=== PATIENT | male | born 1945 | race Caucasian/White ===

== ENCOUNTER 2019-05-12 16:05 | Inpatient (IN) ==
[2019-05-12 16:28] LABS: Eosinophils # (auto) 0.01 K/uL (0-0.5); Eosinophils % (auto) 0.1 %; Hematocrit (blood only) 40.5 % (42-52); Hemoglobin 14.2 g/dL (14.0-18.0); Immature Granulocytes # (auto) 0.02 K/uL (0.00-0.02); Immature Granulocytes % (auto) 0.2 %; Lymphocytes # (auto) 0.65 K/uL (1.2-3.4); Lymphocytes % (auto) 7.5 %; Mean Corpuscular Hgb Conc 35.1 g/dL (32-36); Mean Corpuscular Volume 94.2 fL (80-100); Monocytes # (auto) 1.05 K/uL (0.11-0.59); Monocytes % (auto) 12.1 %; Neutrophils # (auto) 6.95 K/uL (1.4-6.5); Neutrophils % (auto) 80.1 %; Platelet Count 149 K/uL (130-400); RDW Coefficient of Variation 13.2 % (11.5-14.5); RDW Standard Deviation 45.8 fL (36.4-46.3); White Blood Count 8.68 K/uL (4.8-10.8)
[2019-05-12] MEDS ORDERED: SODIUM CHLORIDE 0.9% 1000ML 1,000 ML IV SCH (16:30)
[2019-05-12 16:41] LABS: Alanine Aminotransferase 26 U/L (12-78); Albumin Level 3.6 gm/dl (3.4-5.0); Aspartate Aminotransferase 28 U/L (15-37); BUN Creatinine Ratio 21.2 (10-20); Blood Urea Nitrogen 21 mg/dl (7-18); Calcium 9.5 mg/dl (8.5-10.1); Carbon Dioxide 25 mmol/L (21-32); Chloride 104 mmol/L (98-107); Creatinine Clr Calc Pharmacy 61.1 ml/min; Est GFR (Non-African American) 74.2; Glucose 143 mg/dl (70-99); Potassium 4.2 mmol/L (3.5-5.1); Sodium 139 mmol/L (136-145)
[2019-05-12 16:42] LABS: INR 1.1 (0.9-1.1); Partial Thromboplastin Time 26.2 Seconds (21.0-31.0); Prothrombin Time 10.9 Seconds (9.0-12.0)
[2019-05-12] MEDS ORDERED: PIPERACILL/TAZOBAC CONSULT ACTIVE PRN (16:43)
[2019-05-12] MEDS ORDERED: VANCOMYCIN CONSULT ACTIVE PRN (16:43)
[2019-05-12] MEDS ORDERED: VANCOMYCIN HCL 1,750 MG in SODIUM CHLORIDE 0.9% 500 ML IV ONE (16:43)
[2019-05-12] MEDS ORDERED: PIPERACILLIN/TAZOBACTAM 4.5 GM/120 ML BAG IV ONE (16:43)
[2019-05-12 16:46] LABS: Albumin Globulin Ratio 0.8 (0.9-2); Alkaline Phosphatase 149 U/L (45-117); Bilirubin,Total 0.8 mg/dl (0.2-1); Globulin 4.6 gm/dl (2.5-4.0); Total Protein 8.2 gm/dl (6.4-8.2); Troponin I < 0.015 ng/ml (0-0.045)
--- NOTE | 2019-05-12 16:47 | CT Scan Report ---
CT SCAN OF THE BRAIN WITHOUT IV CONTRAST CLINICAL HISTORY: Headache. COMPARISON STUDY: CT of the brain dated 12/20/2018. TECHNIQUE: Unenhanced axial CT scan of the brain is performed from the vertex to the skull base. A do se lowering technique was utilized adhering to the principles of ALARA. CT DOSE: 614.27 mGy.cm FINDINGS: Brain parenchyma: There is a large focus of encephalomalacia centered in the left basal ganglia at th e site of previous hemorrhage. There is serpiginous hyperdensity at this site (axial image #16) which likely represents gliosis/calcification. Trace recurrent hemorrhage would be impossible to exclude i n the absence of prior comparisons. There are age-related involutional changes noting moderate subco rtical and periventricular microangiopathic change. There is no mass effect or or evidence of acute t erritorial ischemia by CT criteria. Nails-white matter differentiation is preserved. No extra-axial fl uid collection is seen. Ventricles, sulci, cisterns: Prominent secondary to involutional change. Intracranial vasculature: There is atherosclerotic calcification of the cavernous carotid and vertebr al arteries. Calvarium: Unremarkable. Sinuses and mastoids: Trace mucosal thickening is seen in the maxillary antra. The remaining paranasa l sinuses are clear. The mastoid air cells are well pneumatized. Orbits: The bony orbits are grossly intact. IMPRESSION: 1. There is a large focus of encephalomalacia centered in the left basal ganglia at the site of previ ous hemorrhage. There is serpiginous hyperdensity at this site which likely represents calcification/ gliosis. Recurrent hemorrhage is considered less likely but would be impossible to exclude without in terval comparison studies. If there is strong clinical concern for acute hemorrhage consider short-te rm CT follow-up. 2. No additional foci are concerning for hemorrhage. 3. There is no mass effect or evidence of acute territorial ischemia by CT criteria. Electronically signed by: Elvin Alcantar M.D. 05/12/2019 4:46 PM
[2019-05-12] MEDS: SODIUM CHLORIDE 0.9% 1000ML 1,000 ML IV SCH ×3 (16:54→22:50)
--- NOTE | 2019-05-12 17:19 | XRay Report ---
SINGLE VIEW CHEST CLINICAL HISTORY: Sepsis. FINDINGS: An AP, portable, upright chest radiograph is obtained. No prior studies are available for c omparison at the time of dictation. The examination is degraded by portable technique and patient ro tation. The heart is enlarged and there is atherosclerotic calcification of the thoracic aorta. The p ulmonary vasculature is noncongested. There is mild bibasilar scarring/atelectasis. No airspace conso lidation or large pleural effusion is identified. No pneumothorax is seen. The skeletal structures ar e osteopenic. The bony thorax is grossly intact. Degenerative change is noted in the shoulders and th oracic spine. IMPRESSION: Cardiomegaly with no acute cardiopulmonary abnormality. Electronically signed by: Elvin Alcantar M.D. 05/12/2019 5:18 PM
[2019-05-12] MEDS ORDERED: ACETAMINOPHEN 1,000 MG/100 ML VIAL IV STA (17:32)
--- NOTE | 2019-05-12 18:56 | History & Physical Report ---
Date of Service May 12, 2019 Assessment & Plan (1) Fever: In ER pt found to be febrile 38.6-39.2C, P: 125, R: 13, BP: 170/112, 99% on RA. WBC: 8, H/H: 14/40, lactate: 2.9, Procalcitonin: 0.10 CXR: no acute changes CT Head: 1. There is a large focus of encephalomalacia centered in the left basal ganglia at the site of previous hemorrhage. There is serpiginous hyperdensity at this site which likely represents calcification/gliosis. Recurrent hemorrhage is considered less likely but would be impossible to exclude without interval comparison studies. If there is strong clinical concern for acute hemorrhage consider short-term CT follow-up. 2. No additional foci are concerning for hemorrhage. 3. There is no mass effect or evidence of acute territorial ischemia by CT criteria. -In ER Was given 2L NSS, Zosyn, Vancomycin, Tylenol IV and pt reports decreased NOONAN. HR decreased to 102, BP decreased to 128/74 -Meets SIRS criteria, possible meningitis. 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 Course complicated by DT's, respiratory failure requiring intubation, PEG tube Residual expressive and receptive aphasia Today CT Head: 1. There is a large focus of encephalomalacia centered in the left basal ganglia at the site of previous hemorrhage. There is serpiginous hyperdensity at this site which likely represents calcification/gliosis. Recurrent hemorrhage is considered less likely but would be impossible to exclude without interval comparison studies. If there is strong clinical concern for acute hemorrhage consider short-term CT follow-up. 2. No additional foci are concerning for hemorrhage. 3. There is no mass effect or evidence of acute territorial ischemia by CT criteria. -Will get MRI brain (3) HTN (hypertension): Initially hypertensive in ER at 170/112 down to 128/74 Pt has been off lisinopril secondary to low BPs over past couple of months -Monitor BP DVT Prophylaxis -SCDs Full Code as per discussion with pt Follows with Dr Dickens for routine care Pt was seen and care coordinated with Dr Bronson. 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 assists in history secondary to patients aphasia. States pt with diffuse weakness today and decreased appetite. Pt c/o diffuse NOONAN today. Reports pt with residual weakness, however was back to being able to walk and was to start outpatient therapy today. Today pt too weak to walk. Pt with chronic neck pain and stiffness since hemorrhagic stroke in 11/2018. Denies any increased neck pain or stiffness. Pt had Tdap on 05/08/19. Today noticed redness at injection site. Pt had PEG tube during hospitalization in 11/2018 which has been removed and since with noted bleeding and discharge. Denies any increased discharge from site. Denies surrounding erythema or edema. Denies abdominal pain, N/V/D. Denies known tick bites, ill contacts. Was taken off Lisinopril approx. 2 months ago secondary to low BPs at PCP office. Denies diaphoresis, dizziness, syncope, photophobia, vision changes, CP, SOB, orthopnea, palpitations, cough, sore throat, choking, otalgia, rhinorrhea, paresthesias, extremity edema, other rashes, urinary symptoms. In ER pt found to be febrile up to 39.2C. 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 Course complicated by DT's, respiratory failure requiring intubation, PEG tube Residual expressive and receptive aphasia Alcohol abuse (Chronic) Last drink 11/2018 Surgical History Status post insertion of percutaneous endoscopic gastrostomy (PEG) tube (Resolved) Placed at [facility] during hospitalization 11/2018; Now removed Family History Other Family history non-contributory Social History Preferred Language: Tristanian Communication Ability: Effective Global Program Director Required: No Beliefs That Will Affect Care: None marital status: Current Living Situation: Spouse Feels Safe at Home: Yes Smoking Status: Never smoker Hx Alcohol Use: No (HX ALCOHOL DAILY USE OVER YEARS - QUIT NOVEMBER 2018) Hx Substance Use: No Review of Systems Review of Systems: All systems reviewed & are unremarkable except as noted in HPI & below Physical Exam Physical Exam: General: no acute distress, WDWN Head: normocephalic, atraumatic Eyes: PERRL, EOM's intact, conjunctiva non-injected, anicteric ENT: normal inspection external ears, nose, mucous membranes dry, very poor dentition with caries and broken teeth with gingival edema, slight gingival bleeding upper front gingiva; no facial edema Neck: supple, trachea midline, chronic neck stiffness Lungs: clear, no respiratory distress, no wheezing/rhonchi/rales CV: Tachy 102, regular rhythm, no murmur, no JVD, no pretibial edema Abd: normal BS, soft, +open area at prior peg tube site with slight bloody drainage noted on dressing without any surrounding edema or erythema, no purulent drainage noted, non-tender Ext: no cyanosis, no calf tenderness Neuro: Alert, +aphasia which is chronic, diffuse weakness is also chronic Skin: warm, dry, LUE: 9cm x 5cm area of erythema at site of Tdap Results & Data Vital Signs (Past 12 Hours) Vital Signs Temp Pulse Pulse Resp BP BP Pulse Ox 05/12/19 18:30 102 H 95 05/12/19 18:15 111 H 94 05/12/19 18:00 128/74 96 05/12/19 17:47 150/89 H 99 05/12/19 17:32 129 H 189/109 H 96 05/12/19 17:30 39.2 C H 121 H 122 H 18 201/125 H 189/109 H 97 05/12/19 17:15 111 H 177/115 H 97 05/12/19 17:00 114 H 112 H 18 174/101 H 177/115 H 97 05/12/19 16:45 119 H 18 97 05/12/19 16:35 127 H 22 165/102 H 97 05/12/19 16:30 119 H 23 165/102 H 98 05/12/19 16:28 119 H 24 169/96 H 98 05/12/19 16:20 120 H 18 170/104 H 99 05/12/19 16:15 121 H 25 H 97 05/12/19 16:14 123 H 25 H 98 05/12/19 16:11 123 H 27 H 170/112 H 98 05/12/19 16:05 38.6 C H 125 H 125 H 13 170/112 H 170/112 H 99 Laboratory Results Short CBC 05/12/19 Range/Units 15:49 WBC 8.68 (4.8-10.8) K/uL Hgb 14.2 (14.0-18.0) g/dL Hct 40.5 L (42-52) % Plt Count 149 (130-400) K/uL BMP 05/12/19 15:49 Sodium 139 Potassium 4.2 Chloride 104 Carbon Dioxide 25 BUN 21 H Creatinine 0.99 Glucose 143 H Calcium 9.5 Cardiac Enzymes 05/12/19 Range/Units 15:49 Troponin I < 0.015 (0-0.045) ng/ml Liver Function 05/12/19 Range/Units 15:49 Total Bilirubin 0.8 (0.2-1) mg/dl AST 28 (15-37) U/L ALT 26 (12-78) U/L Alkaline Phosphatase 149 H (45-117) U/L Albumin 3.6 (3.4-5.0) gm/dl LACTATE 2.9 (0.4-2.0) Diagnostic Findings CT HEAD: IMPRESSION: 1. There is a large focus of encephalomalacia centered in the left basal ganglia at the site of previous hemorrhage. There is serpiginous hyperdensity at this site which likely represents calcification/gliosis. Recurrent hemorrhage is considered less likely but would be impossible to exclude without interval comparison studies. If there is strong clinical concern for acute hemorrhage consider short-term CT follow-up. 2. No additional foci are concerning for hemorrhage. 3. There is no mass effect or evidence of acute territorial ischemia by CT criteria. CXR: IMPRESSION: Cardiomegaly with no acute cardiopulmonary abnormality. ECG Rate (beats per minute): 119 Rhythm: sinus tachycardia Findings: + PVC Code Status & VTE Plan VTE Prophylaxis Plan VTE Prophylaxis will be ordered: Yes Supervising Physician Co-Signing Physician Notes Pt was seen and examined. Agreed with Stacie DOUGLAS exam, assessment and plan. 73 y/o M with PMH intraparenchymal hemorrhage 11/2018 with residual expressive and receptive aphasia, alcoholism with last drink in 11/2018, HTN presented to ER with weakness. Most of the history obtained from due to patients aphasia. Pt developed generalized weakness and low appetite. He said that he feels his legs gave up on him. Febrile associated with headache in the ER. CT head done showed large focus of encephalomalacia centered in the left basal ganglia at the site of previous hemorrhage. Will check blood cx and wound cx at the peg tube site. Discussed with patient about meningitis and possible of LP, pt said that he wants a little time to think about LP. Will check Lyme and anaplasmosis markers. Continue Rocephin and IV Vancomycin. Continue monitor closely. MD Aiyana
[2019-05-12 19:47] LABS: Appearance Urine Clear (Clear); Bilirubin Urine Negative (Negative); Blood Urine Negative (Negative); Color Urine Dark Yellow; Glucose Urine UA Negative (Negative); Ketones Urine Negative (Negative); Leukocyte Esterase Urine Negative (Negative); Nitrite Urine Negative (Negative); Protein Urine Negative (Negative); Specific Gravity Urine 1.021 (1.000-1.030); Urobilinogen Urine Negative (Negative); pH Urine 7.5 (4.5-7.5)
--- NOTE | 2019-05-12 22:01 | CT Scan Report ---
CT SCAN OF THE BRAIN WITHOUT IV CONTRAST CLINICAL HISTORY: Strokelike symptoms. Headache. COMPARISON STUDY: CT scans of the brain performed earlier the same day 05/12/2019 and 12/20/2018. TECHNIQUE: Unenhanced axial CT scan of the brain is performed from the vertex to the skull base. A do se lowering technique was utilized adhering to the principles of ALARA. CT DOSE: 614.27 mGy.cm FINDINGS: Brain parenchyma: There is a large focus of encephalomalacia centered in the left basal ganglia at th e site of previous hemorrhage. There is serpiginous hyperdensity at this site (axial image #16) which likely represents gliosis/calcification. Trace recurrent hemorrhage would be impossible to exclude i n the absence of prior comparisons. There are age-related involutional changes noting moderate subco rtical and periventricular microangiopathic change. There is no mass effect or or evidence of acute t erritorial ischemia by CT criteria. Nails-white matter differentiation is preserved. No extra-axial fl uid collection is seen. Ventricles, sulci, cisterns: Prominent secondary to involutional change. Intracranial vasculature: There is atherosclerotic calcification of the cavernous carotid and vertebr al arteries. Calvarium: Unremarkable. Sinuses and mastoids: Trace mucosal thickening is seen in the maxillary antra. The remaining paranasa l sinuses are clear. The mastoid air cells are well pneumatized. Orbits: The bony orbits are grossly intact. IMPRESSION: 1. There has been no significant change from today's earlier examination. 2. Again seen is a large focus of encephalomalacia centered in the left basal ganglia at the site of previous hemorrhage. Serpiginous hyperdensity is again seen at this site, and this likely represents calcification/gliosis. Recurrent hemorrhage is not excluded. If there is strong clinical concern for recurrent hemorrhage a 12-24 follow-up examination is recommended or sooner if the patient clinically worsens. 3. No additional findings are concerning for hemorrhage. 4. There is no mass effect or evidence of acute territorial ischemia by CT criteria. Electronically signed by: Elvin Alcantar M.D. 05/12/2019 10:00 PM
[2019-05-12] MEDS ORDERED: ACETAMINOPHEN 325 MG TAB PO PRN (22:22)
[2019-05-12] MEDS ORDERED: ONDANSETRON INJ 2 MG/ML 2 ML VIAL IV PRN (22:22)
[2019-05-12 23:12] LABS: Lyme Ab IgG w/WB Rflx Negative (Negative); Lyme Ab IgM w/WB Rflx Negative (Negative)
[2019-05-13] MEDS: cefTRIAXone SODIUM 2,000 MG in DEXTROSE 5% 50 ML IV SCH ×3 (00:04→21:31)
--- NOTE | 2019-05-13 00:25 | Emergency Department Note ---
Entered by Nichelle Ledesma acting as a scribe for Sonido Frances MD History of Present Illness General Chief complaint: Stroke/CVA Symptoms Stated complaint: AMS, FEVER, Source: family () and EMS Mode of arrival: EMS History of Present Illness Provider complaint: headache Onset (ago): hour(s) 1 Location: head Radiation: non-radiation Severity: similar to prior episodes Associated symptoms: + confusion, + fever/chills (+fever, -chills), + loss of appetite, + weakness and + other (+pale); no seizure The patient is a 73 male w/ PMHx of hemorrhagic stroke, alcohol abuse, and aphasia who presents to the ED w/ CC of a headache beginning an hour ago. Per EMS, the patient was walking with his prior to arrival where he developed a headache and became weak. They report that she sat him down on the floor. They state that the patient has a history of hemorrhagic stroke that occurred in November. They state that the patient was pale, febrile, and confused on arrival. Per the patients , the patient has aphasia from the prior stoke. She notes that the patient has had a lack of appetite lately and has not been able to get him to walk. She states that the patient has a history of alcoholism which he quit in November after his stroke. She states that the patient does not take any medications. She states that the patient did not have a sei zure prior to arrival and has no history of seizures. 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 Course complicated by DT's, respiratory failure requiring intubation, PEG tube Residual expressive and receptive aphasia Alcohol abuse (Chronic) Last drink 11/2018 Surgical History Status post insertion of percutaneous endoscopic gastrostomy (PEG) tube (Resolved) Placed at [facility] during hospitalization 11/2018; Now removed Family History Other Family history non-contributory Social History Preferred Language: Italian Communication Ability: Effective Current Living Situation: Spouse Feels Safe at Home: Yes Safety Concerns: Feels Safe At This Time Smoking Status: Never smoker Hx Alcohol Use: Yes Hx Substance Use: No Review of Systems See HPI for pertinent positives & negatives. and A total of 10 systems reviewed and were otherwise negative Physical Exam Vital Signs Vital Signs - 24 hr 05/12/19 16:05 05/12/19 16:11 05/12/19 16:14 Temperature 38.6 C H Temperature Source Oral Sepsis Recent Fever Within 48 Hours Yes Sepsis New/Unexplained Change in Mental Status No Sepsis Action Taken by Nursing No Action Required Pulse Rate 125 H 123 H 123 H Pulse Rate [Apical] 125 H Pulse Rate from SpO2 Sensor 123 H 123 H Pulse Rhythm Regular Pulse Strength Normal Respiratory Rate 13 27 H 25 H Respiratory Effort / Characteristics Non-Labored Spontaneous Respiratory Depth Normal Respiratory Pattern Regular Blood Pressure 170/112 H 170/112 H Blood Pressure [Left Arm] 170/112 H Blood Pressure Mean 131 131 Blood Pressure Mean [Left Arm] 131 Blood Pressure Position Lying Blood Pressure Position [Left Arm] Lying Pulse Oximetry 99 98 98 Oxygen Delivery Method Room Air 05/12/19 16:15 05/12/19 16:20 05/12/19 16:28 Temperature Temperature Source Sepsis Recent Fever Within 48 Hours Sepsis New/Unexplained Change in Mental Status Sepsis Action Taken by Nursing Pulse Rate 121 H 119 H Pulse Rate [Apical] 120 H Pulse Rate from SpO2 Sensor 121 H 120 H Pulse Rhythm Pulse Strength Respiratory Rate 25 H 18 24 Respiratory Effort / Characteristics Non-Labored Spontaneous Respiratory Depth Normal Respiratory Pattern Regular Blood Pressure 169/96 H Blood Pressure [Left Arm] 170/104 H Blood Pressure Mean 120 Blood Pressure Mean [Left Arm] 126 Blood Pressure Position Blood Pressure Position [Left Arm] Lying Pulse Oximetry 97 99 98 Oxygen Delivery Method Room Air 05/12/19 16:30 05/12/19 16:35 05/12/19 16:45 Temperature Temperature Source Sepsis Recent Fever Within 48 Hours Sepsis New/Unexplained Change in Mental Status Sepsis Action Taken by Nursing Pulse Rate 119 H 119 H Pulse Rate [Apical] 127 H Pulse Rate from SpO2 Sensor 120 H 118 H Pulse Rhythm Pulse Strength Respiratory Rate 23 22 18 Respiratory Effort / Characteristics Non-Labored Spontaneous Respiratory Depth Normal Respiratory Pattern Regular Blood Pressure 165/102 H Blood Pressure [Left Arm] 165/102 H Blood Pressure Mean 123 Blood Pressure Mean [Left Arm] 123 Blood Pressure Position Blood Pressure Position [Left Arm] Lying Pulse Oximetry 98 97 97 Oxygen Delivery Method Room Air 05/12/19 17:00 05/12/19 17:15 05/12/19 17:30 Temperature 39.2 C H Temperature Source Oral Sepsis Recent Fever Within 48 Hours Sepsis New/Unexplained Change in Mental Status Sepsis Action Taken by Nursing Pulse Rate 114 H 111 H 121 H Pulse Rate [Apical] 112 H 122 H Pulse Rate from SpO2 Sensor 114 H 108 H 123 H Pulse Rhythm Pulse Strength Respiratory Rate 18 18 Respiratory Effort / Characteristics Non-Labored Spontaneous Non-Labored Spontaneous Respiratory Depth Normal Normal Respiratory Pattern Regular Regular Blood Pressure 174/101 H 177/115 H 201/125 H Blood Pressure [Left Arm] 177/115 H 189/109 H Blood Pressure Mean 125 135 150 Blood Pressure Mean [Left Arm] 135 135 Blood Pressure Position Blood Pressure Position [Left Arm] Lying Lying Pulse Oximetry 97 97 97 Oxygen Delivery Method Room Air Room Air 05/12/19 17:32 05/12/19 17:47 05/12/19 18:00 Temperature Temperature Source Sepsis Recent Fever Within 48 Hours Sepsis New/Unexplained Change in Mental Status Sepsis Action Taken by Nursing Pulse Rate 129 H Pulse Rate [Apical] Pulse Rate from SpO2 Sensor 118 H 113 H 111 H Pulse Rhythm Pulse Strength Respiratory Rate Respiratory Effort / Characteristics Respiratory Depth Respiratory Pattern Blood Pressure 189/109 H 150/89 H 128/74 Blood Pressure [Left Arm] Blood Pressure Mean 135 109 92 Blood Pressure Mean [Left Arm] Blood Pressure Position Blood Pressure Position [Left Arm] Pulse Oximetry 96 99 96 Oxygen Delivery Method Room Air 05/12/19 18:15 05/12/19 18:30 05/12/19 18:45 Temperature Temperature Source Sepsis Recent Fever Within 48 Hours Sepsis New/Unexplained Change in Mental Status Sepsis Action Taken by Nursing Pulse Rate 111 H 102 H 95 H Pulse Rate [Apical] Pulse Rate from SpO2 Sensor 106 H 102 H 90 Pulse Rhythm Pulse Strength Respiratory Rate Respiratory Effort / Characteristics Respiratory Depth Respiratory Pattern Blood Pressure Blood Pressure [Left Arm] Blood Pressure Mean Blood Pressure Mean [Left Arm] Blood Pressure Position Blood Pressure Position [Left Arm] Pulse Oximetry 94 95 96 Oxygen Delivery Method Room Air Room Air Room Air GENERAL: Well appearing, tachycardic, well nourished, NAD, non-toxic. EYE EXAM: Normal conjunctiva. PERRL, no anisocoria and EOM's grossly intact w/o pain. OROPHARYNX: Moist mucous membranes. Grossly normal dentition. NECK: Supple, no nuchal rigidity, no adenopathy, non-tender. No signs of meningismus. LUNGS: Clear to auscultation. Normal chest wall mechanics. HEART: Tachycardic rate, regular rhythm, no MRG. ABDOMEN: Abdomen soft, non-tender, normo-active bowel sounds, no masses, no rebound or guarding. BACK: No CVA TTP. SKIN: No bruising. Scant redness to L upper extremity, 4 cm by 4 cm, blanches, Nikolsky negative. UPPER EXTREMITIES: Upper extremities are grossly normal. LOWER EXTREMITIES: No pitting edema. No calf pain. NEURO EXAM: Awake, eyes open, following intermittent commands, good finger to nose, no drift of extremities, intermittent confusion, sometimes responds with same answer for different questions. Course 1610: The patient was evaluated in room B1, and a complete history and physical examination were performed. 172: I reevaluated the patient and updated him and his of his results, the patient is resting comfortably. 1729: I discussed the patient's case with Stacie Walsh, Dr. Razia Walsh Hospitalist, will accept the patient for further evaluation. Consultations Consultation #1: Stacie Walsh Hospitalist Time: 17:39 Administered Medications Sodium Chloride (Nss 1000ml) 1,000 mls @ 100 mls/hr IV .Q10H JOHN Stop: 05/13/19 18:21 Last Admin: 05/12/19 22:50 Dose: 100 mls/hr Documented by: [id number] Ceftriaxone Sodium 2,000 mg/ (Dextrose) 70 mls @ 100 mls/hr IV Q12H JOHN; Protocol Stop: 05/22/19 22:59 Last Admin: 05/13/19 00:04 Dose: 100 mls/hr Documented by: [id number] Discontinued Medications Sodium Chloride (Nss 1000ml) 1,000 mls @ 999 mls/hr IV .Q1H1M JOHN Stop: 05/12/19 17:30 Last Infusion: 05/12/19 17:54 Dose: 0 mls/hr Documented by: [id number] Admin: 05/12/19 16:53 Dose: 999 mls/hr Documented by: [id number] Sodium Chloride (Nss 1000ml) 1,000 mls @ 999 mls/hr IV .Q1H1M JOHN Stop: 05/12/19 17:00 Last Infusion: 05/12/19 18:30 Dose: 0 mls/hr Documented by: [id number] Admin: 05/12/19 17:05 Dose: 999 mls/hr Documented by: [id number] Piperacillin Sod/Tazobactam Sod (Zosyn) 4.5 gm in 120 mls @ 240 mls/hr IV NOW ONE Stop: 05/12/19 17:12 Last Infusion: 05/12/19 17:29 Dose: 0 mls/hr Documented by: [id number] Admin: 05/12/19 16:59 Dose: 240 mls/hr Documented by: [id number] Vancomycin HCl 1,750 mg/ (Sodium Chloride) 535 mls @ 200 mls/hr IV NOW ONE; Protocol Stop: 05/12/19 19:23 Last Infusion: 05/12/19 20:12 Dose: 0 mls/hr Documented by: [id number] Admin: 05/12/19 17:29 Dose: 200 mls/hr Documented by: [id number] Acetaminophen (Ofirmev) 1,000 mg in 100 mls @ 400 mls/hr IV NOW STA Stop: 05/12/19 17:46 Last Infusion: 05/12/19 17:53 Dose: 0 mls/hr Documented by: [id number] Admin: 05/12/19 17:38 Dose: 400 mls/hr Documented by: [id number] Medical Decision Making Medical Records Attestation: I reviewed the patient's medical records. Home Medications Current Medication List: was personally reviewed by me Laboratory Data Attestation: I reviewed the patient's lab results. Result diagrams: 05/12/19 15:49 05/12/19 15:49 Lab Results 05/12/19 05/12/19 05/12/19 Range/Units 15:49 15:49 15:49 WBC 8.68 (4.8-10.8) K/uL RBC 4.30 L (4.7-6.1) M/uL Hgb 14.2 (14.0-18.0) g/dL Hct 40.5 L (42-52) % MCV 94.2 (80-100) fL MCH 33.0 (25-34) pg MCHC 35.1 (32-36) g/dL RDW Std Deviation 45.8 (36.4-46.3) fL RDW Coeff of [place] 13.2 (11.5-14.5) % Plt Count 149 (130-400) K/uL MPV 10.0 (7.4-10.4) fL Immature Gran % (Auto) 0.2 % Neut % (Auto) 80.1 % Lymph % (Auto) 7.5 % [place] % (Auto) 12.1 % Eos % (Auto) 0.1 % Baso % (Auto) 0.0 % Immature Gran # (Auto) 0.02 (0.00-0.02) K/uL Neut # (Auto) 6.95 H (1.4-6.5) K/uL Lymph # (Auto) 0.65 L (1.2-3.4) K/uL [place]pton # (Auto) 1.05 H (0.11-0.59) K/uL Eos # (Auto) 0.01 (0-0.5) K/uL Baso # (Auto) 0.00 (0-0.2) K/uL Absolute Nucleated RBC 0.00 (0-0) K/uL Nucleated RBC % (auto) 0.0 % PT 10.9 (9.0-12.0) Seconds INR 1.1 (0.9-1.1) APTT 26.2 (21.0-31.0) Seconds PTT Ratio 1.0 Sodium 139 (136-145) mmol/L Potassium 4.2 (3.5-5.1) mmol/L Chloride 104 (98-107) mmol/L Carbon Dioxide 25 (21-32) mmol/L Anion Gap 10.0 (3-11) BUN 21 H (7-18) mg/dl Creatinine 0.99 (0.6-1.4) mg/dl Est Cr Clr Drug Dosing 61.1 ml/min Est GFR ( Amer) 86.0 Est GFR (Non-Af Amer) 74.2 BUN/Creatinine Ratio 21.2 H (10-20) Glucose 143 H (70-99) mg/dl POC Glucose (70-99) Lactate (0.4-2.0) mmol/L Calcium 9.5 (8.5-10.1) mg/dl Total Bilirubin 0.8 (0.2-1) mg/dl AST 28 (15-37) U/L ALT 26 (12-78) U/L Alkaline Phosphatase 149 H (45-117) U/L Troponin I < 0.015 (0-0.045) ng/ml Total Protein 8.2 (6.4-8.2) gm/dl Albumin 3.6 (3.4-5.0) gm/dl Globulin 4.6 H (2.5-4.0) gm/dl Albumin/Globulin Ratio 0.8 L (0.9-2) Procalcitonin (0-0.5) ng/ml Ethyl Alcohol mg/dL (0-3) mg/dl Anaplasma Smear See Comment Lyme Disease IgG Ab (Negative) Lyme Disease IgM Ab (Negative) 05/12/19 05/12/19 05/12/19 Range/Units 15:49 15:49 16:14 WBC (4.8-10.8) K/uL RBC (4.7-6.1) M/uL Hgb (14.0-18.0) g/dL Hct (42-52) % MCV (80-100) fL MCH (25-34) pg MCHC (32-36) g/dL RDW Std Deviation (36.4-46.3) fL RDW Coeff of [place] (11.5-14.5) % Plt Count (130-400) K/uL MPV (7.4-10.4) fL Immature Gran % (Auto) % Neut % (Auto) % Lymph % (Auto) % [place] % (Auto) % Eos % (Auto) % Baso % (Auto) % Immature Gran # (Auto) (0.00-0.02) K/uL Neut # (Auto) (1.4-6.5) K/uL Lymph # (Auto) (1.2-3.4) K/uL Upton # (Auto) (0.11-0.59) K/uL Eos # (Auto) (0-0.5) K/uL Baso # (Auto) (0-0.2) K/uL Absolute Nucleated RBC (0-0) K/uL Nucleated RBC % (auto) % PT (9.0-12.0) Seconds INR (0.9-1.1) APTT (21.0-31.0) Seconds PTT Ratio Sodium (136-145) mmol/L Potassium (3.5-5.1) mmol/L Chloride (98-107) mmol/L Carbon Dioxide (21-32) mmol/L Anion Gap (3-11) BUN (7-18) mg/dl Creatinine (0.6-1.4) mg/dl Est Cr Clr Drug Dosing ml/min Est GFR ( Amer) Est GFR (Non-Af Amer) BUN/Creatinine Ratio (10-20) Glucose (70-99) mg/dl POC Glucose 143 H (70-99) Lactate (0.4-2.0) mmol/L Calcium (8.5-10.1) mg/dl Total Bilirubin (0.2-1) mg/dl AST (15-37) U/L ALT (12-78) U/L Alkaline Phosphatase (45-117) U/L Troponin I (0-0.045) ng/ml Total Protein (6.4-8.2) gm/dl Albumin (3.4-5.0) gm/dl Globulin (2.5-4.0) gm/dl Albumin/Globulin Ratio (0.9-2) Procalcitonin 0.10 (0-0.5) ng/ml Ethyl Alcohol mg/dL (0-3) mg/dl Anaplasma Smear Lyme Disease IgG Ab Negative (Negative) Lyme Disease IgM Ab Negative (Negative) 05/12/19 05/12/19 Range/Units 16:38 16:38 WBC (4.8-10.8) K/uL RBC (4.7-6.1) M/uL Hgb (14.0-18.0) g/dL Hct (42-52) % MCV (80-100) fL MCH (25-34) pg MCHC (32-36) g/dL RDW Std Deviation (36.4-46.3) fL RDW Coeff of [place] (11.5-14.5) % Plt Count (130-400) K/uL MPV (7.4-10.4) fL Immature Gran % (Auto) % Neut % (Auto) % Lymph % (Auto) % [place] % (Auto) % Eos % (Auto) % Baso % (Auto) % Immature Gran # (Auto) (0.00-0.02) K/uL Neut # (Auto) (1.4-6.5) K/uL Lymph # (Auto) (1.2-3.4) K/uL [place] # (Auto) (0.11-0.59) K/uL Eos # (Auto) (0-0.5) K/uL Baso # (Auto) (0-0.2) K/uL Absolute Nucleated RBC (0-0) K/uL Nucleated RBC % (auto) % PT (9.0-12.0) Seconds INR (0.9-1.1) APTT (21.0-31.0) Seconds PTT Ratio Sodium (136-145) mmol/L Potassium (3.5-5.1) mmol/L Chloride (98-107) mmol/L Carbon Dioxide (21-32) mmol/L Anion Gap (3-11) BUN (7-18) mg/dl Creatinine (0.6-1.4) mg/dl Est Cr Clr Drug Dosing ml/min Est GFR ( Amer) Est GFR (Non-Af Amer) BUN/Creatinine Ratio (10-20) Glucose (70-99) mg/dl POC Glucose (70-99) Lactate 2.9 H* (0.4-2.0) mmol/L Calcium (8.5-10.1) mg/dl Total Bilirubin (0.2-1) mg/dl AST (15-37) U/L ALT (12-78) U/L Alkaline Phosphatase (45-117) U/L Troponin I (0-0.045) ng/ml Total Protein (6.4-8.2) gm/dl Albumin (3.4-5.0) gm/dl Globulin (2.5-4.0) gm/dl Albumin/Globulin Ratio (0.9-2) Procalcitonin (0-0.5) ng/ml Ethyl Alcohol mg/dL < 3.0 (0-3) mg/dl Anaplasma Smear Lyme Disease IgG Ab (Negative) Lyme Disease IgM Ab (Negative) Imaging Data Radiologist's Impression: Radiology results as stated below per my review and the radiologist's interpretation: CT SCAN OF THE BRAIN WITHOUT IV CONTRAST CLINICAL HISTORY: Headache. COMPARISON STUDY: CT of the brain dated 12/20/2018. TECHNIQUE: Unenhanced axial CT scan of the brain is performed from the vertex to the skull base. A dose lowering technique was utilized adhering to the principles of ALARA. CT DOSE: 614.27 mGy.cm FINDINGS: Brain parenchyma: There is a large focus of encephalomalacia centered in the left basal ganglia at the site of previous hemorrhage. There is serpiginous hyperdensity at this site (axial image #16) which likely represents gliosis/calcification. Trace recurrent hemorrhage would be impossible to exclude in the absence of prior comparisons. There are age-related involutional changes noting moderate subcortical and periventricular microangiopathic change. There is no mass effect or or evidence of acute territorial ischemia by CT criteria. Nails-white matter differentiation is preserved. No extra-axial fluid collection is seen. Ventricles, sulci, cisterns: Prominent secondary to involutional change. Intracranial vasculature: There is atherosclerotic calcification of the alfonso nous carotid and vertebral arteries. Calvarium: Unremarkable. Sinuses and mastoids: Trace mucosal thickening is seen in the maxillary antra. The remaining paranasal sinuses are clear. The mastoid air cells are well pneumatized. Orbits: The bony orbits are grossly intact. IMPRESSION: 1. There is a large focus of encephalomalacia centered in the left basal ganglia at the site of previous hemorrhage. There is serpiginous hyperdensity at this site which likely represents calcification/gliosis. Recurrent hemorrhage is considered less likely but would be impossible to exclude without interval comparison studies. If there is strong clinical concern for acute hemorrhage consider short-term CT follow-up. 2. No additional foci are concerning for hemorrhage. 3. There is no mass effect or evidence of acute territorial ischemia by CT criteria. Electronically signed by: Elvin Alcantar M.D. 05/12/2019 4:46 PM SINGLE VIEW CHEST CLINICAL HISTORY: Sepsis. FINDINGS: An AP, portable, upright chest radiograph is obtained. No prior studies are available for comparison at the time of dictation. The examination is degraded by portable technique and patient rotation. The heart is enlarged and there is atherosclerotic calcification of the thoracic aorta. The pulmonary vasculature is noncongested. There is mild bibasilar scarring/atelectasis. No airspace consolidation or large pleural effusion is identified. No pneumothorax is seen. The skeletal structures are osteopenic. The bony thorax is grossly intact. Degenerative change is noted in the shoulders and thoracic spine. IMPRESSION: Cardiomegaly with no acute cardiopulmonary abnormality. Electronically signed by: Elvni Alcantar M.D. 05/12/2019 5:[address] SCAN OF THE BRAIN WITHOUT IV CONTRAST CLINICAL HISTORY: Strokelike symptoms. Headache. COMPARISON STUDY: CT scans of the brain performed earlier the same day 05/12/2019 and 12/20/2018. TECHNIQUE: Unenhanced axial CT scan of the brain is performed from the vertex to the skull base. A dose lowering technique was utilized adhering to the principles of ALARA. CT DOSE: 614.27 mGy.cm FINDINGS: Brain parenchyma: There is a large focus of encephalomalacia centered in the left basal ganglia at the site of previous hemorrhage. There is serpiginous hyperdensity at this site (axial image #16) which likely represents gliosis /calcification. Trace recurrent hemorrhage would be impossible to exclude in the absence of prior comparisons. There are age-related involutional changes noting moderate subcortical and periventricular microangiopathic change. There is no mass effect or or evidence of acute territorial ischemia by CT criteria. Nails- white matter differentiation is preserved. No extra-axial fluid collection is seen. Ventricles, sulci, cisterns: Prominent secondary to involutional change. Intracranial vasculature: There is atherosclerotic calcification of the cavernous carotid and vertebral arteries. Calvarium: Unremarkable. Sinuses and mastoids: Trace mucosal thickening is seen in the maxillary antra. The remaining paranasal sinuses are clear. The mastoid air cells are well pneumatized. Orbits: The bony orbits are grossly intact. IMPRESSION: 1. There has been no significant change from today's earlier examination. 2. Again seen is a large focus of encephalomalacia centered in the left basal ganglia at the site of previous hemorrhage. Serpiginous hyperdensity is again seen at this site, and this likely represents calcification/gliosis. Recurrent hemorrhage is not excluded. If there is strong clinical concern for recurrent hemorrhage a 12-24 follow-up examination is recommended or sooner if the patient clinically worsens. 3. No additional findings are concerning for hemorrhage. 4. There is no mass effect or evidence of acute territorial ischemia by CT criteria. Electronically signed by: Elvin Alcantar M.D. 05/12/2019 10:00 PM ECG Data Attestation: I personally reviewed and interpreted this ECG as follows: Indication: altered mental status Rate (beats per minute): 118 Rhythm: sinus tachycardia Findings: + other (normal interval and axis) and + PVC (single); no acute ischemic change Blood Pressure Blood Pressure Findings: Elevated blood pressure Blood Pressure Disposition: further management by hospitalist DAE Garza The patient is a 73 male w/ PMHx of hemorrhagic stroke, alcohol abuse, and aphasia who presents to the ED w/ CC of a headache beginning an hour ago. Differential diagnosis: Etiologies such as migraine headache, meningitis, sinusitis, CO exposure, ICH, SAH, infection, tumor, headache, sinus thrombosis, arterial dissection, as well as others were entertained. Patient was seen and evaluated the bedside. The patient did present with concern for headache as well as fever. The patient does have some baseline expressive aphasia and mild confusion given that he had a prior history of a hemorrhagic stroke. The patient does intermittently follow commands. The patient does not have any evidence of drips and does have symmetric and equal strength. Pupils are equally round and reactive. The patient does have some repetitive answers for different questions but occasionally does properly answer. The patient's family member did arrive at the bedside and the patient is more or less at baseline. Given this I do not believe he requires an acute lumbar puncture but I did discuss with the family member and that if his condition does not improve or does deteriorate that would be a consideration. Patient was covered with broad-spectrum antibiotics. Lactate was ordered which was somewhat elevated. The patient's white blood cell count is within normal limits. Other consideration was that the patient did recently recently have a Tdap completed and does have some left foot upper extremity redness which may be contributory and causing a cellulitis. The patient does have a history of alcohol abuse. The patient alcohol was negative. The patient's initial CT scan showed a likely calcification or gliosis. The patient does not appear meningitic has full range of motion of the neck does not appear photophobic and currently denies any pain so lumbar puncture was not pursued at this time. Uri nalysis is pending. I did speak with the on-call hospitalist agreed to further evaluate treat the patient. Patient was admitted to the medicine service. A repeat CT was ordered in order to rule out the possibility of ICH. Impression & Plan Sepsis, Fever, Cellulitis Discharge Plan Visit Data *Final* Discharge Date/Time: 05/12/19 21:34 Chief Complaint: Stroke/CVA Symptoms Stated Complaint: AMS, FEVER, ED Provider: Sonido Frances Discharge Problem: Sepsis, Fever, Cellulitis Patient Disposition: Admitted As Inpatient Discharge Instructions Interventions: ED Discharge Assessment Last Done: 05/12/19 21:34 Discharge Problem: Sepsis Qualifiers: Sepsis type: sepsis due to unspecified organism Sepsis acute organ dysfunction status: unspecified Qualified Code(s): A41.9 - Sepsis, unspecified organism Fever Qualifiers: Fever type: unspecified Qualified Code(s): R50.9 - Fever, unspecified Cellulitis Qualifiers: Site of cellulitis: extremity Site of cellulitis of extremity: upper extremity Laterality: left Qualified Code(s): L03.114 - Cellulitis of left upper limb The scribe's documentation has been prepared under my direction and personally reviewed by me in its entirety. I confirm that the note above accurately reflects all work, treatment, procedures, and medical decision making performed by me.
[2019-05-13] MEDS: VANCOMYCIN HCL 1,000 MG in SODIUM CHLORIDE 0.9% 250 ML IV SCH ×2 (04:55→17:53)
[2019-05-13 06:20] LABS: Basophils # (auto) 0.01 K/uL (0-0.2); Basophils % (auto) 0.2 %; Eosinophils # (auto) 0.04 K/uL (0-0.5); Eosinophils % (auto) 0.6 %; Hematocrit (blood only) 37.2 % (42-52); Hemoglobin 12.9 g/dL (14.0-18.0); Immature Granulocytes # (auto) 0.02 K/uL (0.00-0.02); Immature Granulocytes % (auto) 0.3 %; Lymphocytes # (auto) 0.77 K/uL (1.2-3.4); Lymphocytes % (auto) 11.9 %; Mean Corpuscular Hgb Conc 34.7 g/dL (32-36); Mean Corpuscular Volume 92.8 fL (80-100); Mean Platelet Volume 9.7 fL (7.4-10.4); Monocytes # (auto) 0.98 K/uL (0.11-0.59); Monocytes % (auto) 15.1 %; Neutrophils # (auto) 4.66 K/uL (1.4-6.5); Neutrophils % (auto) 71.9 %; Platelet Count 104 K/uL (130-400); RDW Coefficient of Variation 13.1 % (11.5-14.5); RDW Standard Deviation 44.6 fL (36.4-46.3); Red Blood Count 4.01 M/uL (4.7-6.1); White Blood Count 6.48 K/uL (4.8-10.8)
[2019-05-13 07:12] LABS: Albumin Globulin Ratio 0.8 (0.9-2); Albumin Level 2.9 gm/dl (3.4-5.0); BUN Creatinine Ratio 17.3 (10-20); Calcium 8.4 mg/dl (8.5-10.1); Creatinine Clr Calc Pharmacy 94.6 ml/min; Est GFR (African American) 112.5; Globulin 3.7 gm/dl (2.5-4.0); Potassium 3.7 mmol/L (3.5-5.1); Total Protein 6.6 gm/dl (6.4-8.2)
[2019-05-13] MEDS: SODIUM CHLORIDE 0.9% 1000ML 1,000 ML IV SCH (08:46)
--- NOTE | 2019-05-13 10:45 | Infectious Disease Consult ---
Date of Consultation May 13, 2019 Assessment & Plan (1) Fever: no clear infectious etiology found, ? due to old cranial bleed. If concerned for meningits will need LP, can continue abx for now pending culture results. will follow. History of Present Illness Attending Physician: Abraham Bronson MD pt admitted with weakness, dodd. Has recent h/o brain hemorrhage in 11/2018, treated at [facility] [place]. now with aphasia. able to answer yes/no questions. Denies f/c currently, no dodd currently, no visual changes. Denies abd pain, no n/v/d. no cp, sob, cough, ni. UA, CXR, lyme screen negative in ER. found to have tmax 39.2. Given abx in ER and continued on vanco and rocephin upon admission, tolerating well. wbc 6.4. Lactate initially 2.9, now 1. procalcitonin negative. CT head showing encephalomalacia at area of old hemorrhage but no new hemorrhage found. concern for meningitis, no LP done. blood cultures pending, peg site swabbed, culture pending, no pain or drainage at site. 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 Course complicated by DT's, respiratory failure requiring intubation, PEG tube Residual expressive and receptive aphasia Alcohol abuse (Chronic) Last drink 11/2018 Surgical History Status post insertion of percutaneous endoscopic gastrostomy (PEG) tube (Resolved) Placed at [facility] during hospitalization 11/2018; Now removed Family History Other Family history non-contributory Social History Preferred Language: Gambian Communication Ability: Effective Current Living Situation: Spouse Feels Safe at Home: Yes Safety Concerns: Feels Safe At This Time Smoking Status: Never smoker Hx Alcohol Use: Yes Hx Substance Use: No Review of Systems Review of Systems: All systems reviewed & are unremarkable except as noted in HPI & below Physical Exam Constitutional: WD/WN, vitals as above Eyes: PERRL, conjunctivae normal, anicteric sclerae ENMT: external ear and nose normal, oropharynx normal Neck: normal visual inspection Respiratory: normal respiratory effort, lungs clear to auscultation Cardiovascular: RRR, no murmur, no edema Gastrointestinal (Abdomen): normal bowel sounds, soft, nontender, no hepatosplenomegaly Musculoskeletal: Head/Neck/Chest: + head abnormal to inspection, normocephalic and head atraumatic Skin: no rashes, warm and dry Psychiatric: A+Ox3, euthymic affect Results & Data Vital Signs (Past 12 Hours) Vital Signs Temp Pulse Pulse Resp BP Pulse Ox 05/13/19 08:42 36.6 C 69 19 123/74 98 05/13/19 07:30 76 05/13/19 04:40 36.8 C 76 20 149/82 H 98 05/13/19 03:44 75 05/12/19 23:00 36.7 C 74 18 146/85 H 96 05/12/19 22:45 37.0 C 82 18 155/94 H 98 Laboratory Results Microbiology 05/12/19 19:30 Abdomen Gram Stain - Final PG Care Time/CCT Total # of Minutes Spent Total Time Spent with Patient: Total time spent is greater than 50% in coordination of care (as documented) at patient's floor/unit and/or counseling patient: (1) Fever Fever type: unspecified Qualified Code(s): R50.9 - Fever, unspecified
--- NOTE | 2019-05-13 12:42 | Magnetic Resonance Report ---
MRI OF THE BRAIN WITHOUT CONTRAST CLINICAL HISTORY: Intracranial hemorrhage. COMPARISON STUDY: CT scan dated 05/12/2019 FINDINGS: Sagittal T1, axial diffusion, proton density and T2 weighted axial, coronal FLAIR, and axial T1-weigh nehal images were acquired. There is hemosiderin deposition within the left basal ganglia, consistent with a remote hemorrhage. T he area involved measures approximately 2.7 cm. There is post hemorrhage encephalomalacia with compen satory dilatation of the anterior horn left lateral ventricle. Axial diffusion-weighted images reveal no evidence of acute or subacute infarction. There is mild dilatation of the anterior horn left lateral ventricle, finding which is felt to be sec ondary to volume loss Proton density T2-weighted and FLAIR images reveal scattered foci of increased T2 signal within the w minh matter, likely on a small vessel basis. There are no abnormal flow voids. IMPRESSION: 1. Old left basal ganglia hemorrhage with hemosiderin deposition. There is posthemorrhagic encephalom alacia with compensatory dilatation of the anterior horn left lateral ventricle 2. No MRI evidence of acute hemorrhage 3. No evidence of acute or subacute infarction Electronically signed by: Palmer Poole M.D. 05/13/2019 12:41 PM
--- NOTE | 2019-05-13 17:50 | Hospitalist Progress Note ---
Date of Service May 13, 2019 Assessment & Plan (1) Fever: Present on admission with fever and weakness and headache Lactate on admission 2.9 with normal procalcitonin and WBC CXR on admission negative Lyme was negative Wound cx positive for staph aureus ID on board recommended to continue IV Vanco and Rocephin Blood cx pending Discussed with patient about LP to r/o meningitis Pt not interested to get an LP done, but he said that he would need time to thing about it Has been afebrile (2) History of cerebral parenchymal hemorrhage: 11/2018 - intraparenchymal hemorrhage L basal ganglia, [place] [facility] Course complicated by DT's, respiratory failure requiring intubation, PEG tube Residual expressive and receptive aphasia CT head showed a large focus of encephalomalacia centered in the left basal ganglia at the site of previous hemorrhage. There is serpiginous hyperdensity at this site which likely represents calcification/gliosis. MRI brain of head showed Old left basal ganglia hemorrhage with hemosiderin deposition. No MRI evidence of acute hemorrhage Stable (3) HTN (hypertension): BP stable Continue monitor BP DVT Prophylaxis SCDs Full Code Subjective Pt was seen and examined Lying in bed with no distress Pt said that he feels fine He said that he does not have any headache, photophobia He said that he feels much better and has been afebrile Discussed with him about LP, he said that he would need to thing about it Denies any chest pain, palpitation, dizziness and SOB Physical Exam Physical Exam: General- No acute distress Head- atraumatic Eyes- PERRL, EOMI, ENT- oropharynx clear Neck- supple, no JVD Lungs- clear to auscultation Heart- regular rhythm; no murmur Abdomen- normal bowel sounds, soft, nontender, +open area at prior peg tube site with slight drainage Extremities- no calf tenderness Neuro- alert, oriented x 3; PERRL, EOMI; no facial palsy; no dysarthria Skin- warm & dry Results & Data Vital Signs (Past 12 Hours) Vital Signs Temp Pulse Pulse Resp BP BP Pulse Ox 05/13/19 16:18 36.9 C 76 18 128/81 98 05/13/19 16:00 65 05/13/19 11:27 37.1 C 68 16 119/74 99 05/13/19 08:42 36.6 C 69 19 123/74 98 05/13/19 07:30 76
--- NOTE | 2019-05-14 00:11 | Hospitalist Progress Note ---
Date of Service May 14, 2019 Subjective Made aware by RN of uncontrolled blood pressure. SBP 1 50-1 70s Patient asymptomatic as per RN. Home lisinopril recently stopped outpatient due to good control as per records. AP Hypertensive urgency Resume home lisinopril for now. Will relay to AM provider. Results & Data Vital Signs (Past 12 Hours) Vital Signs Temp Pulse Pulse Resp BP BP Pulse Ox 05/13/19 23:47 36.9 C 73 18 174/93 H 98 05/13/19 21:23 37.3 C 158/82 H 05/13/19 19:10 37.7 C H 79 18 161/89 H 96 05/13/19 16:18 36.9 C 76 18 128/81 98 05/13/19 16:00 65
[2019-05-14] MEDS: LISINOPRIL 2.5 MG TAB PO SCH (01:28)
[2019-05-14] MEDS ORDERED: VANCOMYCIN TROUGH ONE ×2 (05:30)
[2019-05-14] MEDS: VANCOMYCIN HCL 1,000 MG in SODIUM CHLORIDE 0.9% 250 ML IV SCH (05:40)
[2019-05-14 06:37] LABS: Creatinine Clr Calc Pharmacy 102.9 ml/min; Est GFR (African American) 116.4; Est GFR (Non-African American) 100.4
--- NOTE | 2019-05-14 10:07 | Hospitalist Progress Note ---
Date of Service May 14, 2019 Assessment & Plan (1) Fever: Present on admission with fever and weakness and headache Lactate on admission 2.9 with normal procalcitonin and WBC CXR on admission negative Lyme was negative Wound cx positive for staph aureus ID on board recommended to continue IV Vanco and Rocephin Blood cx no growth Discussed with patient about LP to r/o meningitis Pt denies any headache, photophobia Pt not interested to get an LP done He continues to refuse LP Will discuss with ID on final abx on discharge Has been afebrile Clinically improves (2) History of cerebral parenchymal hemorrhage: 11/2018 - intraparenchymal hemorrhage L basal ganglia, [place] [facility] [place] Course complicated by DT's, respiratory failure requiring intubation, PEG tube Residual expressive and receptive aphasia CT head showed a large focus of encephalomalacia centered in the left basal ganglia at the site of previous hemorrhage. There is serpiginous hyperdensity at this site which likely represents calcification/gliosis. MRI brain of head showed Old left basal ganglia hemorrhage with hemosiderin deposition. No MRI evidence of acute hemorrhage Stable (3) HTN (hypertension): BP was elevated Starting on lisinopril 2.5 mg Continue monitor BP Weakness Continue PT/OT Fall precaution PT recommended in patient rehab for therapy interested for [facility] to go [facility] DVT Prophylaxis SCDs Full Code Disposition Consider inpatient rehab Subjective Pt was seen and examined Lying in bed with no distress with at bedside Pt said that he feels much better He is getting a little stronger He was able to walk to the bathroom today said that pt was not able to stand when he came to the ER He continues to refuse to get the LP done Denies any chest pain, palpitation, dizziness, headache and fever Physical Exam Physical Exam: General- No acute distress Head- atraumatic Eyes- PERRL, EOMI, ENT- oropharynx clear Neck- supple, no JVD Lungs- clear to auscultation Heart- regular rhythm; no murmur Abdomen- normal bowel sounds, soft, nontender, +open area at prior peg tube site covers with bandage Extremities- no calf tenderness Neuro- alert, oriented x 3; PERRL, EOMI; no facial palsy; no dysarthria Skin- warm & dry Results & Data Vital Signs (Past 12 Hours) Vital Signs Temp Pulse Pulse Resp BP BP Pulse Ox 05/14/19 07:39 59 L 05/14/19 07:16 36.8 C 62 16 114/72 97 05/14/19 04:14 37.1 C 67 20 144/84 H 97 05/14/19 00:00 73 05/13/19 23:47 36.9 C 73 18 174/93 H 98
[2019-05-14] MEDS: cefTRIAXone SODIUM 2,000 MG in DEXTROSE 5% 50 ML IV SCH (11:00)
[2019-05-14] MEDS ORDERED: VANCOMYCIN HCL 1,000 MG in SODIUM CHLORIDE 0.9% 250 ML IV SCH (12:00)
--- NOTE | 2019-05-14 14:07 | Infectious Disease Progress Nt ---
Date of Service May 14, 2019 Assessment & Plan (1) Fever: spoke with primary service, will change to po keflex for MSSA on wound culture, will stop IV abx, ok to remove droplet precautions. Ok for d/c on 7 days keflex from ID standpoint. Subjective pt seen in followup, doing well. declined LP. no f/c. no abd pain, no n/v/d. wound culture from peg site grew MSSA, denies any pain in the area. no ddod, no visual complaints. remains on emperic ctx and vanco, tolerating well. no cp, sob, cough. Blood cultures negative, all remaining ros reviewed and are negative. Review of Systems Review of Systems: All systems reviewed & are unremarkable except as noted in HPI & below Physical Exam Constitutional: WD/WN, vitals as above Eyes: PERRL, conjunctivae normal, anicteric sclerae ENMT: external ear and nose normal, oropharynx normal Neck: normal visual inspection Respiratory: normal respiratory effort, lungs clear to auscultation Cardiovascular: RRR, no murmur, no edema Gastrointestinal (Abdomen): normal bowel sounds, soft, nontender, no hepatosplenomegaly Musculoskeletal: Head/Neck/Chest: + head abnormal to inspection, normocephalic and head atraumatic Skin: no rashes, warm and dry old peg site wound c/d/i, no warmth, tenderness, no surrounding erythema. Psychiatric: A+Ox3, euthymic affect Results & Data Vital Signs (Past 12 Hours) Vital Signs Temp Pulse Pulse Resp BP BP Pulse Ox 05/14/19 11:31 37.1 C 62 16 120/67 97 05/14/19 07:39 59 L 05/14/19 07:16 36.8 C 62 16 114/72 97 05/14/19 04:14 37.1 C 67 20 144/84 H 97 Laboratory Results Microbiology 05/12/19 19:30 Abdomen Gram Stain - Final 05/12/19 19:30 Abdomen Wound Culture - Final Staphylococcus aureus 05/12/19 16:49 Blood Aerobic Blood Culture - Preliminary No growth in Aerobic bottle after 24 hours. 05/12/19 16:49 Blood Anaerobic Blood Culture - Preliminary No growth in Anaerobic bottle after 24 hours. 05/12/19 16:39 Blood Aerobic Blood Culture - Preliminary No growth in Aerobic bottle after 24 hours. 05/12/19 16:39 Blood Anaerobic Blood Culture - Preliminary No growth in Anaerobic bottle after 24 hours. PG Care Time/CCT Total # of Minutes Spent Total Time Spent with Patient: Total time spent is greater than 50% in coordination of care (as documented) at patient's floor/unit and/or counseling patient: (1) Fever Fever type: unspecified Qualified Code(s): R50.9 - Fever, unspecified
[2019-05-14] MEDS: cephALEXin 500 MG CAP PO SCH ×2 (16:09→20:48)
[2019-05-15 08:01] LABS: Est GFR (African American) 107.6; Est GFR (Non-African American) 92.9
[2019-05-15] MEDS: cephALEXin 500 MG CAP PO SCH (08:46)
[2019-05-15] MEDS: LISINOPRIL 2.5 MG TAB PO SCH (08:52)
--- NOTE | 2019-05-15 15:51 | Hospitalist Progress Note ---
Date of Service May 15, 2019 Assessment & Plan (1) Fever: Present on admission with fever and weakness and headache Lactate on admission 2.9 with normal procalcitonin and WBC CXR on admission negative Lyme was negative Wound cx positive for staph aureus ID on board recommended to continue IV Vanco and Rocephin Blood cx no growth Has been afebrile Discussed with patient about LP to r/o meningitis Pt denies any headache, photophobia Pt not interested to get an LP done No LP done since pt refused and his symptoms resolved Case discussed with ID recommended to transition to Oral Keflex for 7 days Clinically improves (2) History of cerebral parenchymal hemorrhage: 11/2018 - intraparenchymal hemorrhage L basal ganglia, transferred to [facility] [place]. Course complicated by DT's, respiratory failure requiring intubation, PEG tube Residual expressive and receptive aphasia CT head showed a large focus of encephalomalacia centered in the left basal ganglia at the site of previous hemorrhage. There is serpiginous hyperdensity at this site which likely represents calcification/gliosis. MRI brain of head showed Old left basal ganglia hemorrhage with hemosiderin deposition. No MRI evidence of acute hemorrhage Stable (3) HTN (hypertension): BP was elevated Starting on lisinopril 2.5 mg Continue monitor BP Weakness Continue PT/OT Fall precaution PT recommended in patient rehab for therapy but insurance refused inpatient re[facility] to [facility] wants to take him home now since he is getting stronger and do outpatient therapy He does not want to use the walker to ambulate Advised pt to use a cane, but a walker will be more preferable DVT Prophylaxis SCDs Full Code Disposition Discharge home today Subjective Pt was seen and examined Lying in bed with no distress Pt said that he feels much better He said that his strength is much better His insurance denies inpatient therapy to [facility] His wants to take him home now Denies any chest pain, palpitation and SOB Physical Exam Physical Exam: General- No acute distress Head- atraumatic Eyes- PERRL, EOMI, ENT- oropharynx clear Neck- supple, no JVD Lungs- clear to auscultation Heart- regular rhythm; no murmur Abdomen- normal bowel sounds, soft, nontender, +open area at prior peg tube site covers with bandage Extremities- no calf tenderness Neuro- alert, oriented x 3; PERRL, EOMI; no facial palsy; no dysarthria Skin- warm & dry Results & Data Vital Signs (Past 12 Hours) Vital Signs Temp Pulse Pulse Pulse Resp BP BP 05/15/19 12:00 36.9 C 65 18 122/73 05/15/19 08:45 74 05/15/19 07:00 36.7 C 66 18 114/72 Pulse Ox 05/15/19 12:00 98 05/15/19 08:45 05/15/19 07:00 95
--- NOTE | 2019-05-19 01:57 | Discharge Summary ---
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 assists in history secondary to patients aphasia. States pt with diffuse weakness today and decreased appetite. Pt c/o diffuse NOONAN today. Reports pt with residual weakness, however was back to being able to walk and was to start outpatient therapy today. Today pt too weak to walk. Pt with chronic neck pain and stiffness since hemorrhagic stroke in 11/2018. Denies any increased neck pain or stiffness. Pt had Tdap on 05/08/19. Today noticed redness at injection site. Pt had PEG tube during hospitalization in 11/2018 which has been removed and since with noted bleeding and discharge. Denies any increased discharge from site. Denies surrounding erythema or edema. Denies abdominal pain, N/V/D. Denies known tick bites, ill contacts. Was taken off Lisinopril approx. 2 months ago secondary to low BPs at PCP office. Denies diaphoresis, dizziness, syncope, photophobia, vision changes, CP, SOB, orthopnea, palpitations, cough, sore throat, choking, otalgia, rhinorrhea, paresthesias, extremity edema, other rashes, urinary symptoms. In ER pt found to be febrile up to 39.2C. Admission Exam Per Admitting Provider General: no acute distress, WDWN Head: normocephalic, atraumatic Eyes: PERRL, EOM's intact, conjunctiva non-injected, anicteric ENT: normal inspection external ears, nose, mucous membranes dry, very poor dentition with caries and broken teeth with gingival edema, slight gingival bleeding upper front gingiva; no facial edema Neck: supple, trachea midline, chronic neck stiffness Lungs: clear, no respiratory distress, no wheezing/rhonchi/rales CV: Tachy 102, regular rhythm, no murmur, no JVD, no pretibial edema Abd: normal BS, soft, +open area at prior peg tube site with slight bloody drainage noted on dressing without any surrounding edema or erythema, no purulent drainage noted, non-tender Ext: no cyanosis, no calf tenderness Neuro: Alert, +aphasia which is chronic, diffuse weakness is also chronic Skin: warm, dry, LUE: 9cm x 5cm area of erythema at site of Tdap Principal Diagnosis Fever History of cerebral parenchymal hemorrhage HTN (hypertension) weakness Discharge Exam General- No acute distress Head- atraumatic Eyes- PERRL, EOMI, ENT- oropharynx clear Neck- supple, no JVD Lungs- clear to auscultation Heart- regular rhythm; no murmur Abdomen- normal bowel sounds, soft, nontender, +open area at prior peg tube site covers with bandage Extremities- no calf tenderness Neuro- alert, oriented x 3; PERRL, EOMI; no facial palsy; no dysarthria Skin- warm & dry Discharge Data Allergies Allergy/AdvReac Type Severity Reaction Status Date / Time No Known Allergies Allergy Mild Unverified 05/12/19 16:34 Consultations 05/12/19 17:32 ED Decision to Admit Stat 05/12/19 22:22 Consult Case Management - Discharge Planning Routine Consult Infectious Diseases Routine Ordered Studies 05/12/19 16:15 CT head/brain wo con Stat 05/12/19 20:33 CT head/brain wo con Routine 05/13/19 07:20 MR brain wo con Urgent MRI OF THE BRAIN WITHOUT CONTRAST CLINICAL HISTORY: Intracranial hemorrhage. COMPARISON STUDY: CT scan dated 05/12/2019 FINDINGS: Sagittal T1, axial diffusion, proton density and T2 weighted axial, coronal FLAIR, and axial T1-weighted images were acquired. There is hemosiderin deposition within the left basal ganglia, consistent with a remote hemorrhage. The area involved measures approximately 2.7 cm. There is post hemorrhage encephalomalacia with compensatory dilatation of the anterior horn left lateral ventricle. Axial diffusion-weighted images reveal no evidence of acute or subacute infarction. There is mild dilatation of the anterior horn left lateral ventricle, finding which is felt to be secondary to volume loss Proton density T2-weighted and FLAIR images reveal scattered foci of increased T2 signal within the white matter, likely on a small vessel basis. There are no abnormal flow voids. IMPRESSION: 1. Old left basal ganglia hemorrhage with hemosiderin deposition. There is posthemorrhagic encephalomalacia with compensatory dilatation of the anterior horn left lateral ventricle 2. No MRI evidence of acute hemorrhage 3. No evidence of acute or subacute infarction Electronically signed by: Palmer Poole M.D. 05/13/2019 12:41 PM Dictated: 05/13/19 1235 Transcribed: 05/13/[address] SCAN OF THE BRAIN WITHOUT IV CONTRAST CLINICAL HISTORY: Strokelike symptoms. Headache. COMPARISON STUDY: CT scans of the brain performed earlier the same day 05/12/2019 and 12/20/2018. TECHNIQUE: Unenhanced axial CT scan of the brain is performed from the vertex to the skull base. A dose lowering technique was utilized adhering to the principles of ALARA. CT DOSE: 614.27 mGy.cm FINDINGS: Brain parenchyma: There is a large focus of encephalomalacia centered in the left basal ganglia at the site of previous hemorrhage. There is serpiginous hyperdensity at this site (axial image #16) which likely represents gliosis/calcification. Trace recurrent hemorrhage would be impossible to exclude in the absence of prior comparisons. There are age-related involutional changes noting moderate subcortical and periventricular microangiopathic change. There is no mass effect or or evidence of acute territorial ischemia by CT criteria. Nails-white matter differentiation is preserved. No extra-axial fluid collection is seen. Ventricles, sulci, cisterns: Prominent secondary to involutional change. Intracranial vasculature: There is atherosclerotic calcification of the c avernous carotid and vertebral arteries. Calvarium: Unremarkable. Sinuses and mastoids: Trace mucosal thickening is seen in the maxillary antra. The remaining paranasal sinuses are clear. The mastoid air cells are well pneumatized. Orbits: The bony orbits are grossly intact. IMPRESSION: 1. There has been no significant change from today's earlier examination. 2. Again seen is a large focus of encephalomalacia centered in the left basal ganglia at the site of previous hemorrhage. Serpiginous hyperdensity is again seen at this site, and this likely represents calcification/gliosis. Recurrent hemorrhage is not excluded. If there is strong clinical concern for recurrent hemorrhage a 12-24 follow-up examination is recommended or sooner if the patient clinically worsens. 3. No additional findings are concerning for hemorrhage. 4. There is no mass effect or evidence of acute territorial ischemia by CT criteria. Electronically signed by: Elvin Alcantar M.D. 05/12/2019 10:00 PM Dictated: 05/12/192154 Transcribed: 05/12/192154 SINGLE VIEW CHEST CLINICAL HISTORY: Sepsis. FINDINGS: An AP, portable, upright chest radiograph is obtained. No prior studies are available for comparison at the time of dictation. The examination is degraded by portable technique and patient rotation. The heart is enlarged and there is atherosclerotic calcification of the thoracic aorta. The pulmonary vasculature is noncongested. There is mild bibasilar scarring/atelectasis. No airspace consolidation or large pleural effusion is identified. No pneumothorax is seen. The skeletal structures are osteopenic. The bony thorax is grossly intact. Degenerative change is noted in the shoulders and thoracic spine. IMPRESSION: Cardiomegaly with no acute cardiopulmonary abnormality. Electronically signed by: Elvin Alcantar M.D. 05/12/2019 5:18 PM Dictated: 05/12/[id number] Transcribed: 05/12/191715 CT SCAN OF THE BRAIN WITHOUT IV CONTRAST CLINICAL HISTORY: Headache. COMPARISON STUDY: CT of the brain dated 12/20/2018. TECHNIQUE: Unenhanced axial CT scan of the brain is performed from the vertex to the skull base. A dose lowering technique was utilized adhering to the principles of ALARA. CT DOSE: 614.27 mGy.cm FINDINGS: Brain parenchyma: There is a large focus of encephalomalacia centered in the left basal ganglia at the site of previous hemorrhage. There is serpiginous hy perdensity at this site (axial image #16) which likely represents gliosis/calcification. Trace recurrent hemorrhage would be impossible to exclude in the absence of prior comparisons. There are age-related involutional changes noting moderate subcortical and periventricular microangiopathic change. There is no mass effect or or evidence of acute territorial ischemia by CT criteria. Nails-white matter differentiation is preserved. No extra-axial fluid collection is seen. Ventricles, sulci, cisterns: Prominent secondary to involutional change. Intracranial vasculature: There is atherosclerotic calcification of the cavernous carotid and vertebral arteries. Calvarium: Unremarkable. Sinuses and mastoids: Trace mucosal thickening is seen in the maxillary antra. The remaining paranasal sinuses are clear. The mastoid air cells are well pneumatized. Orbits: The bony orbits are grossly intact. IMPRESSION: 1. There is a large focus of encephalomalacia centered in the left basal ganglia at the site of previous hemorrhage. There is serpiginous hyperdensity at this site which likely represents calcification/gliosis. Recurrent hemorrhage is considered less likely but would be impossible to exclude without interval comparison studies. If there is strong clinical concern for acute hemorrhage consider short-term CT follow-up. 2. No additional foci are concerning for hemorrhage. 3. There is no mass effect or evidence of acute territorial ischemia by CT criteria. Electronically signed by: Elvin Alcantar M.D. 05/12/2019 4:46 PM Dictated: 05/12/19 1638 Transcribed: 05/12/19 1638 Hospital Course (1) Fever: Present on admission with fever and weakness and headache Lactate on admission 2.9 with normal procalcitonin and WBC CXR on admission negative Lyme was negative Wound cx positive for staph aureus ID on board recommended to continue IV Vanco and Rocephin Blood cx no growth Has been afebrile Discussed with patient about LP to r/o meningitis Pt denies any headache, photophobia Pt not interested to get an LP done No LP done since pt refused and his symptoms resolved Case discussed with ID recommended to transition to Oral Keflex for 7 days Clinically improves (2) History of cerebral parenchymal hemorrhage: 11/2018 - intraparenchymal hemorrhage L basal ganglia, transferred to [facility] [place]. Course complicated by DT's, respiratory failure requiring intubation, PEG tube Residual expressive and receptive aphasia CT head showed a large focus of encephalomalacia centered in the left basal ganglia at the site of previous hemorrhage. There is serpiginous hyperdensity at this site which likely represents calcification/gliosis. MRI brain of head showed Old left basal ganglia hemorrhage with hemosiderin deposition. No MRI evidence of acute hemorrhage Stable (3) HTN (hypertension): BP was elevated Starting on lisinopril 2.5 mg Continue monitor BP Weakness Continue PT/OT Fall precaution PT recommended in patient rehab for therapy but insurance refused [facility] re[facility] wants to take him home now since he is getting stronger and do outpatient therapy He does not want to use the walker to ambulate Advised pt to use a cane, but a walker will be more preferable DVT Prophylaxis SCDs Full Code Disposition Discharge home today Total Time Total Time Spent Total Time Spent (In Minutes): 35 minutes Total Time Includes: Examination of the Patient, Discharge Planning, Medication Reconciliation, Communication With Other Providers and Other Discharge Plan Discharge Items Patient Disposition: Home - Self-Care Reason For Visit: FEVER Discharge Diagnosis: Fever History of cerebral parenchymal hemorrhage HTN (hypertension) weakness Discharge Goals: Decrease discomfort, Improve disease control, Improve function and Increase independence Activity: Resume your previous activity Activity Comment: As tolerated Non-emergency contact: Primary Care Provider Call non-emergency contact if: you have any medication questions Follow-up/Referrals: Noel Dickens MD [Primary Care Provider] - Diet: Heart Healthy Addtl Provider Instructions: Follow up with your primary care provider Dr. Dey on 05/21 @ 9:25 AM Follow up with wound care Continue daily wound care Continue physical and occupational therapy Fall precaution Use a cane or walker to ambulate complete course of antibiotic with Keflex Monitor your blood pressure Prescriptions: New cephalexin 500 mg Capsule 500 mg PO BID 6 Days Qty: 12 RF: 0 lisinopril 2.5 mg Tablet 2.5 mg PO QAM 30 Days Qty: 30 RF: 0 Continued multivitamin Tablet 1 tab PO DAILY RF: 0 Stand-Alone Forms: [facility] Discharge Orders: Discharge Order (Routine); Ordered 05/15/19 Ordered By: Abraham Bronson Admission Data Admit Date/Time: 05/12/19 18:50 Attending Provider: Abraham Bronson Admit Provider: Abraham Bronson Primary Care Provider: Noel Dickens Other Providers: Abraham Bronson ; Eileen Abad Service: Telemetry Medical Other Interventions: Discharge Summary Assessment (RN) Last Done: 05/15/19 16:26 DC Date/Time DO NOT enter until pt leaves facility: 05/15/19 17:10
== END 2019-05-15 17:10 | disposition home or self-care (01) | DRG 395 ==
LOC: ED 16:05 → 2W 18:50
DX: M54.2 Cervicalgia; K94.22 Gastrostomy infection; I16.0 Hypertensive urgency; I10 Essential (primary) hypertension; G89.29 Other chronic pain; Y73.2 Prosthetic and other implants, materials and accessory gastroenterology and urology devices associated with adverse incidents; I69.220 Aphasia following other nontraumatic intracranial hemorrhage; F10.21 Alcohol dependence, in remission; Y83.3 Surgical operation with formation of external stoma as the cause of abnormal reaction of the patient, or of later complication, without mention of misadventure at the time of the procedure; R53.1 Weakness; B95.61 Methicillin susceptible Staphylococcus aureus infection as the cause of diseases classified elsewhere